=== PATIENT | male | born 1955 | race Caucasian/White ===

== ENCOUNTER → 2017-05-02 15:10 | Outpatient (CLI) | payer OTHER, SELFPAY ==
[2017-05-02 16:33] LABS: Absolute Lymphocyte Count 2.72 X10^3/ul (0.83-4.51); Basophil# 0.03 X10^3/uL; Basophil% 0.4 % (0-1); Eosinophil# 0.58 X10^3/uL; Hematocrit 31.9 % (40-54); Hemoglobin 9.5 g/dl (13.0-16.5); Lymphocyte # 2.72 X10^3/ul (4.0); Lymphocyte % 32.9 % (19-41); Mean Corp Hgb Conc 29.8 g/gl (32-36); Mean Corpuscular Hgb 26.1 pg (27.0-32.0); Mean Corpuscular Volume 87.6 fL (80-94); Mean Platelet Vol. 10.3 fl (6.2-12.0); Monocyte# 0.95 X10^3/uL; Monocyte% 11.5 % (0-10); Neutrophil # 3.97 X10^3/uL (2.7-7.7); Platelet Count 478 K/mm3 (150-450); RBC Distribution Width CV 15.5 % (11.6-14.6); RBC Distribution Width SD 48.3 fl (35.1-43.9); Red Blood Count 3.64 M/mm3 (4.6-6.2); White Blood Count 8.3 K/mm3 (4.4-11.0)
[2017-05-02 16:37] LABS: POSITIVE COUNT NO; POSITIVE DIFFERENTIAL NO; POSITIVE MORPHOLOGY NO
[2017-05-02 16:38] LABS: Anion Gap 7 (5-15); BUN 11 mg/dL (7-18); BUN/Creat Ratio 21.8 RATIO (10-20); CRP 8.81 mg/L (0.0-3.0); Calcium,Total 8.4 mg/dL (8.5-10.1); Chloride 99 mmol/L (98-107); EST Glomerular Filtration Rate 177 mL/min (>60); Est Glom Filt Rate - Afr Amer 214 mL/min (>60); Glucose 104 mg/dL (70-110); Potassium 4.4 mmol/L (3.5-5.1); Sodium Level 140 mmol/L (136-145)
== END ==
DX: A49.01 Methicillin susceptible Staphylococcus aureus infection, unspecified site (principal)
CPT/HCPCS: 80048; 85025; 86140

== ENCOUNTER → 2017-05-09 15:06 | Outpatient (CLI) | payer OTHER, SELFPAY ==
[2017-05-09 16:11] LABS: Absolute Lymphocyte Count 2.38 X10^3/ul (0.83-4.51); Absolute Neutrophil Count 4.2 X10^3/uL (2.0-7.7); Basophil# 0.05 X10^3/uL; Basophil% 0.6 % (0-1); Eosinophils% 7.4 % (0-5); Hematocrit 32.2 % (40-54); Hemoglobin 9.7 g/dl (13.0-16.5); Lymphocyte # 2.38 X10^3/ul (4.0); Lymphocyte % 29.3 % (19-41); Mean Corp Hgb Conc 30.1 g/gl (32-36); Mean Corpuscular Hgb 25.5 pg (27.0-32.0); Mean Corpuscular Volume 84.5 fL (80-94); Mean Platelet Vol. 10.2 fl (6.2-12.0); Monocyte# 0.91 X10^3/uL; Monocyte% 11.2 % (0-10); Neutrophil # 4.18 X10^3/uL (2.7-7.7); Neutrophil % 51.4 % (47-70); Platelet Count 544 K/mm3 (150-450); RBC Distribution Width CV 16.5 % (11.6-14.6); Red Blood Count 3.81 M/mm3 (4.6-6.2); White Blood Count 8.1 K/mm3 (4.4-11.0)
[2017-05-09 16:13] LABS: POSITIVE COUNT NO; POSITIVE DIFFERENTIAL NO; POSITIVE MORPHOLOGY NO
[2017-05-09 16:24] LABS: Anion Gap 7 (5-15); BUN 15 mg/dL (7-18); BUN/Creat Ratio 27.1 RATIO (10-20); Calcium,Total 8.4 mg/dL (8.5-10.1); Chloride 101 mmol/L (98-107); Creatinine, Serum 0.55 mg/dL (0.70-1.30); EST Glomerular Filtration Rate 159 mL/min (>60); Est Glom Filt Rate - Afr Amer 193 mL/min (>60); Glucose 112 mg/dL (74-106); Potassium 4.3 mmol/L (3.5-5.1); Sodium Level 139 mmol/L (136-145)
== END ==
DX: A49.01 Methicillin susceptible Staphylococcus aureus infection, unspecified site (principal)
CPT/HCPCS: 80048; 85025; 86140

== ENCOUNTER → 2017-05-11 17:01 | Outpatient (CLI) | payer OTHER, SELFPAY ==
[2017-05-11 17:33] LABS: CRP 5.08 mg/L (0.0-3.0)
== END ==
DX: A49.01 Methicillin susceptible Staphylococcus aureus infection, unspecified site (principal)
CPT/HCPCS: 86140

== ENCOUNTER 2017-08-30 13:05 | Outpatient (RCR) | payer OTHER, SELFPAY ==
[2017-08-22 12:39] LABS: Anion Gap 6 (5-15); BUN 10 mg/dL (7-18); BUN/Creat Ratio 17.1 RATIO (10-20); Chloride 102 mmol/L (98-107); Creatinine, Serum 0.58 mg/dL (0.70-1.30); EST Glomerular Filtration Rate 149 mL/min (>60); Est Glom Filt Rate - Afr Amer 181 mL/min (>60); Glucose 93 mg/dL (74-106); Potassium 4.5 mmol/L (3.5-5.1); Sodium Level 141 mmol/L (136-145)
[2017-08-22 12:53] LABS: Absolute Lymphocyte Count 1.96 X10^3/ul (0.83-4.51); Absolute Neutrophil Count 3.4 X10^3/uL (2.0-7.7); Basophil# 0.06 X10^3/uL; Basophil% 0.9 % (0-1); Eosinophil# 0.56 X10^3/uL; Eosinophils% 8.2 % (0-5); Hematocrit 34.5 % (40-54); Hemoglobin 11.2 g/dl (13.0-16.5); Lymphocyte # 1.96 X10^3/ul (4.0); Lymphocyte % 28.8 % (19-41); Mean Corp Hgb Conc 32.5 g/gl (32-36); Mean Corpuscular Hgb 26.5 pg (27.0-32.0); Mean Corpuscular Volume 81.6 fL (80-94); Mean Platelet Vol. 10.4 fl (6.2-12.0); Monocyte# 0.79 X10^3/uL; Monocyte% 11.6 % (0-10); Neutrophil # 3.42 X10^3/uL (2.7-7.7); Neutrophil % 50.2 % (47-70); Platelet Count 538 K/mm3 (150-450); RBC Distribution Width CV 22.4 % (11.6-14.6); RBC Distribution Width SD 64.6 fl (35.1-43.9); Red Blood Count 4.23 M/mm3 (4.6-6.2); White Blood Count 6.8 K/mm3 (4.4-11.0)
[2017-08-22 12:56] LABS: Differential Indicated SCAN CRITERIA MET; POSITIVE COUNT NO; POSITIVE DIFFERENTIAL NO; POSITIVE MORPHOLOGY YES
[2017-08-22 13:24] LABS: Anisocytosis 1+; Hypochromasia 1+; Platelet Estimate ADEQUATE (ADEQ)
[2017-08-30 15:14] LABS: Absolute Neutrophil Count 3.3 X10^3/uL (2.0-7.7); Basophil# 0.08 X10^3/uL; Basophil% 1.3 % (0-1); Eosinophil# 0.39 X10^3/uL; Eosinophils% 6.2 % (0-5); Hematocrit 35.8 % (40-54); Hemoglobin 11.3 g/dl (13.0-16.5); Lymphocyte % 28.4 % (19-41); Mean Corp Hgb Conc 31.6 g/gl (32-36); Mean Corpuscular Hgb 25.6 pg (27.0-32.0); Mean Corpuscular Volume 81.2 fL (80-94); Mean Platelet Vol. 9.9 fl (6.2-12.0); Monocyte% 12.6 % (0-10); Neutrophil # 3.26 X10^3/uL (2.7-7.7); Neutrophil % 51.3 % (47-70); Platelet Count 573 K/mm3 (150-450); RBC Distribution Width CV 22.1 % (11.6-14.6); RBC Distribution Width SD 64.6 fl (35.1-43.9); Red Blood Count 4.41 M/mm3 (4.6-6.2); White Blood Count 6.3 K/mm3 (4.4-11.0)
[2017-08-30 15:21] LABS: Differential Indicated SCAN CRITERIA MET; POSITIVE COUNT NO; POSITIVE DIFFERENTIAL NO; POSITIVE MORPHOLOGY YES
[2017-08-30 15:30] LABS: Anion Gap 10 (5-15); BUN 14 mg/dL (7-18); BUN/Creat Ratio 20.9 RATIO (10-20); CRP 4.47 mg/L (0.0-3.0); Calcium,Total 9.1 mg/dL (8.5-10.1); Chloride 101 mmol/L (98-107); Creatinine, Serum 0.67 mg/dL (0.70-1.30); EST Glomerular Filtration Rate 128 mL/min (>60); Est Glom Filt Rate - Afr Amer 154 mL/min (>60); Glucose 101 mg/dL (74-106); Potassium 4.4 mmol/L (3.5-5.1); Sodium Level 140 mmol/L (136-145)
[2017-08-30 16:03] LABS: Platelet Estimate MOD INC (ADEQ)
[2017-08-30 16:04] LABS: Anisocytosis 1+; Hypochromasia RARE; Microcytosis 1+; Ovalocyte RARE
== END 2017-09-01 23:59 ==
LOC: HHLAB 13:05
DX: Z79.2 Long term (current) use of antibiotics (principal); B95.62 Methicillin resistant Staphylococcus aureus infection as the cause of diseases classified elsewhere; Z51.81 Encounter for therapeutic drug level monitoring
CPT/HCPCS: 80048; 85025; 86140

== ENCOUNTER → 2017-09-10 11:56 | Outpatient (CLI) | payer OTHER, SELFPAY ==
--- NOTE | 2017-09-10 11:56 | DT_ITS ---
This patient was seen during an EMR downtime September 05, 2017 - September 12, 2017. This patient may have a combination of paper and electronic documentation or all paper documentation. All documentation is viewable within the e-chart portion of [employer] for each patient visit.
[2017-09-10 12:10] LABS: BUN 9 mg/dL (7-18); BUN/Creat Ratio 15.8 RATIO (10-20); Creatinine, Serum 0.57 mg/dL (0.70-1.30); EST Glomerular Filtration Rate 154 mL/min (>60); Est Glom Filt Rate - Afr Amer 187 mL/min (>60); Glucose 86 mg/dL (74-106)
[2017-09-10 12:13] LABS: Anion Gap 6 (5-15); CRP 5.23 mg/L (0.0-3.0); Calcium,Total 8.7 mg/dL (8.5-10.1); Chloride 102 mmol/L (98-107); Potassium 4.2 mmol/L (3.5-5.1); Sodium Level 140 mmol/L (136-145)
[2017-09-10 12:14] LABS: Hematocrit 37.6 % (40-54); Mean Corp Hgb Conc 31.9 g/gl (32-36); Mean Corpuscular Volume 84.5 fL (80-94); RBC Distribution Width CV 20.9 % (11.6-14.6); Red Blood Count 4.45 M/mm3 (4.6-6.2); White Blood Count 6.1 K/mm3 (4.4-11.0)
[2017-09-10 12:15] LABS: Absolute Lymphocyte Count 2.09 X10^3/ul (0.83-4.51); Absolute Neutrophil Count 2.8 X10^3/uL (2.0-7.7); Basophil% 1.3 % (0-1); Differential Indicated SCAN CRITERIA MET; Eosinophils% 7.9 % (0-5); Lymphocyte # 2.09 X10^3/ul (4.0); Lymphocyte % 34.3 % (19-41); Mean Platelet Vol. 10.6 fl (6.2-12.0); Monocyte# 0.63 X10^3/uL; Monocyte% 10.3 % (0-10); Neutrophil # 2.81 X10^3/uL (2.7-7.7); Neutrophil % 46.2 % (47-70); POSITIVE COUNT NO; POSITIVE DIFFERENTIAL NO; POSITIVE MORPHOLOGY YES; Platelet Count 525 K/mm3 (150-450); RBC Distribution Width SD 62.5 fl (35.1-43.9)
[2017-09-10 12:16] LABS: Basophil# 0.08 X10^3/uL; Eosinophil# 0.48 X10^3/uL
[2017-09-10 12:17] LABS: Differential Comment SCANNED
== END ==
LOC: LABSPEC 12:05 → HHLAB 12:10
DX: A49.01 Methicillin susceptible Staphylococcus aureus infection, unspecified site (principal)
CPT/HCPCS: 80048; 85025; 86140

== ENCOUNTER 2017-09-19 11:40 | Outpatient (RCR) | payer OTHER, SELFPAY ==
[2017-09-12 13:11] LABS: Absolute Lymphocyte Count 2.16 X10^3/ul (0.83-4.51); Absolute Neutrophil Count 3.5 X10^3/uL (2.0-7.7); Basophil# 0.05 X10^3/uL; Basophil% 0.7 % (0-1); Eosinophil# 0.53 X10^3/uL; Eosinophils% 7.7 % (0-5); Hemoglobin 12.5 g/dl (13.0-16.5); Lymphocyte # 2.16 X10^3/ul (4.0); Lymphocyte % 31.3 % (19-41); Mean Corp Hgb Conc 31.3 g/gl (32-36); Mean Corpuscular Hgb 26.3 pg (27.0-32.0); Mean Corpuscular Volume 84.2 fL (80-94); Mean Platelet Vol. 9.8 fl (6.2-12.0); Monocyte# 0.67 X10^3/uL; Monocyte% 9.7 % (0-10); Neutrophil % 50.6 % (47-70); Platelet Count 356 K/mm3 (150-450); RBC Distribution Width CV 18.8 % (11.6-14.6); RBC Distribution Width SD 58.1 fl (35.1-43.9); Red Blood Count 4.75 M/mm3 (4.6-6.2); White Blood Count 6.9 K/mm3 (4.4-11.0)
[2017-09-12 13:17] LABS: POSITIVE COUNT NO; POSITIVE DIFFERENTIAL NO; POSITIVE MORPHOLOGY NO
[2017-09-12 13:25] LABS: Anion Gap 5 (5-15); BUN 10 mg/dL (7-18); BUN/Creat Ratio 14.8 RATIO (10-20); CRP < 2.90 mg/L (0.0-3.0); Calcium,Total 9.1 mg/dL (8.5-10.1); Chloride 100 mmol/L (98-107); Creatinine, Serum 0.68 mg/dL (0.70-1.30); EST Glomerular Filtration Rate 126 mL/min (>60); Est Glom Filt Rate - Afr Amer 152 mL/min (>60); Glucose 109 mg/dL (74-106); Potassium 4.2 mmol/L (3.5-5.1); Sodium Level 140 mmol/L (136-145)
[2017-09-19 12:51] LABS: Absolute Lymphocyte Count 2.23 X10^3/ul (0.83-4.51); Absolute Neutrophil Count 2.9 X10^3/uL (2.0-7.7); Basophil# 0.07 X10^3/uL; Basophil% 1.1 % (0-1); Eosinophil# 0.56 X10^3/uL; Eosinophils% 8.7 % (0-5); Hematocrit 37.3 % (40-54); Lymphocyte # 2.23 X10^3/ul (4.0); Lymphocyte % 34.5 % (19-41); Mean Corp Hgb Conc 32.2 g/gl (32-36); Mean Corpuscular Hgb 27.5 pg (27.0-32.0); Mean Corpuscular Volume 85.6 fL (80-94); Mean Platelet Vol. 10.5 fl (6.2-12.0); Monocyte# 0.72 X10^3/uL; Monocyte% 11.1 % (0-10); Neutrophil # 2.88 X10^3/uL (2.7-7.7); Neutrophil % 44.4 % (47-70); Platelet Count 277 K/mm3 (150-450); RBC Distribution Width CV 18.1 % (11.6-14.6); RBC Distribution Width SD 56.2 fl (35.1-43.9); Red Blood Count 4.36 M/mm3 (4.6-6.2); White Blood Count 6.5 K/mm3 (4.4-11.0)
[2017-09-19 12:57] LABS: POSITIVE COUNT NO; POSITIVE DIFFERENTIAL NO; POSITIVE MORPHOLOGY NO
[2017-09-19 13:06] LABS: Anion Gap 7 (5-15); BUN 19 mg/dL (7-18); BUN/Creat Ratio 29.4 RATIO (10-20); CRP 5.33 mg/L (0.0-3.0); Chloride 103 mmol/L (98-107); Creatinine, Serum 0.65 mg/dL (0.70-1.30); EST Glomerular Filtration Rate 133 mL/min (>60); Est Glom Filt Rate - Afr Amer 161 mL/min (>60); Glucose 87 mg/dL (74-106); Sodium Level 140 mmol/L (136-145)
== END 2017-10-01 23:59 ==
LOC: HHLAB 11:40
DX: A49.01 Methicillin susceptible Staphylococcus aureus infection, unspecified site (principal)
CPT/HCPCS: 80048; 85025; 86140

== ENCOUNTER 2018-03-06 11:00 | Outpatient (RCR) | payer OTHER, SELFPAY ==
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
--- NOTE | 2018-05-02 11:32 | HP.OT.NRP ---
HP - Discharge Summary - Patient Information CHIVO CANTRELL was seen in my office for initial evaluation on 02/27/18. The following Plan of Care was established for this patient: Initial Frequency: 3x /Week Initial Duration: until 04/03/18 Plan: cont POC - Anticipated Interventions Anticipated Interventions: A/AAROM/PROM, Strengthening, Edema Control, Scar Care, Triggerpoint Release, Modalities, Joint Protection/Energy Conservation, Ergonomic Education, ADL Training, Home Program This patient was last seen 2017 in our office . Pertinent comments regarding their Occupational therapy will appear below: Pt was seen for a total of 3 visits- he was progressing. He has 4 no show/cancellation and has not scheduled any new apts. Due to timelapse in services pt is D/C at this time. At this point I will be discontinuing this patient from occupational therapy. I would be happy to see this patient again in the future if found appropriate by the physician. Thank you! Lani Koch, OTR/L, CHT
== END 2018-03-06 19:00 | disposition home or self-care (01) ==
LOC: OT 11:00
DX: S52.251 Displaced comminuted fracture of shaft of ulna, right arm (principal)
CPT/HCPCS: 97110; 97140; 97166; 97530

== ENCOUNTER 2018-09-18 10:40 | Outpatient (RCR) | payer OTHER, SELFPAY ==
[2018-09-18 13:19] LABS: Absolute Lymphocyte Count 2.04 X10^3/ul (0.83-4.51); Basophil# 0.05 X10^3/uL; Basophil% 0.7 % (0-1); Eosinophils% 5.5 % (0-5); Hematocrit 41.1 % (40-54); Hemoglobin 13.4 g/dl (13.0-16.5); Lymphocyte # 2.04 X10^3/ul (4.0); Lymphocyte % 28.3 % (19-41); Mean Corp Hgb Conc 32.6 g/gl (32-36); Mean Corpuscular Hgb 29.2 pg (27.0-32.0); Mean Corpuscular Volume 89.5 fL (80-94); Mean Platelet Vol. 10.3 fl (6.2-12.0); Monocyte# 0.68 X10^3/uL; Monocyte% 9.4 % (0-10); Neutrophil # 4.04 X10^3/uL (2.7-7.7); Platelet Count 426 K/mm3 (150-450); RBC Distribution Width CV 15.2 % (11.6-14.6); RBC Distribution Width SD 49.4 fl (35.1-43.9); Red Blood Count 4.59 M/mm3 (4.6-6.2); White Blood Count 7.2 K/mm3 (4.4-11.0)
[2018-09-18 13:20] LABS: POSITIVE COUNT NO; POSITIVE DIFFERENTIAL NO; POSITIVE MORPHOLOGY NO
[2018-09-18 13:25] LABS: Anion Gap 6 (5-15); BUN 6 mg/dL (7-18); BUN/Creat Ratio 9.6 RATIO (10-20); Chloride 101 mmol/L (98-107); Creatinine, Serum 0.63 mg/dL (0.70-1.30); EST Glomerular Filtration Rate 137 mL/min (>60); Est Glom Filt Rate - Afr Amer 166 mL/min (>60); Glucose 92 mg/dL (74-106); Potassium 4.1 mmol/L (3.5-5.1); Sodium Level 140 mmol/L (136-145)
[2018-09-18 13:26] LABS: Vancomycin, Trough Level 13.3 ug/mL (5.0-15.0)
[2018-09-25 10:37] LABS: Absolute Lymphocyte Count 1.98 X10^3/ul (0.83-4.51); Absolute Neutrophil Count 4.6 X10^3/uL (2.0-7.7); Basophil# 0.04 X10^3/uL; Basophil% 0.5 % (0-1); Eosinophil# 0.45 X10^3/uL; Eosinophils% 5.7 % (0-5); Hematocrit 40.7 % (40-54); Hemoglobin 13.4 g/dl (13.0-16.5); Lymphocyte # 1.98 X10^3/ul (4.0); Lymphocyte % 25.1 % (19-41); Mean Corp Hgb Conc 32.9 g/gl (32-36); Mean Corpuscular Hgb 29.3 pg (27.0-32.0); Mean Corpuscular Volume 88.9 fL (80-94); Monocyte# 0.77 X10^3/uL; Monocyte% 9.8 % (0-10); Neutrophil # 4.63 X10^3/uL (2.7-7.7); Neutrophil % 58.8 % (47-70); Platelet Count 385 K/mm3 (150-450); RBC Distribution Width CV 15.5 % (11.6-14.6); RBC Distribution Width SD 49.9 fl (35.1-43.9); Red Blood Count 4.58 M/mm3 (4.6-6.2); White Blood Count 7.9 K/mm3 (4.4-11.0)
[2018-09-25 10:39] LABS: POSITIVE COUNT NO; POSITIVE DIFFERENTIAL NO; POSITIVE MORPHOLOGY NO
[2018-09-25 10:53] LABS: Anion Gap 8 (5-15); BUN 15 mg/dL (7-18); BUN/Creat Ratio 23.2 RATIO (10-20); CRP 8.67 mg/L (0.0-3.0); Calcium,Total 8.9 mg/dL (8.5-10.1); Chloride 101 mmol/L (98-107); Creatinine, Serum 0.65 mg/dL (0.70-1.30); EST Glomerular Filtration Rate 133 mL/min (>60); Est Glom Filt Rate - Afr Amer 160 mL/min (>60); Glucose 102 mg/dL (74-106); Sodium Level 140 mmol/L (136-145)
[2018-09-25 10:54] LABS: Vancomycin, Random Level 14.1 ug/mL (0.0-15.0)
== END 2018-10-01 23:59 ==
LOC: HHLAB 10:40
DX: T81.43XA Infection following a procedure, organ and space surgical site, initial encounter (principal); T84.192A Other mechanical complication of internal fixation device of bone of right forearm, initial encounter
CPT/HCPCS: 80048; 80202; 85025; 86140

== ENCOUNTER → 2018-10-03 08:06 | Outpatient (CLI) | payer OTHER, SELFPAY ==
[2018-10-03] MEDS: Alteplase 2 MG/2 ML Vial IV (08:20)
[2018-10-03 08:27] VITALS: BP 148/77; PULSE 85; RESP 18; TEMP 36.4; O2SAT 90; BMI 33.0
[2018-10-03 09:55] LABS: Absolute Lymphocyte Count 1.48 X10^3/ul (0.83-4.51); Absolute Neutrophil Count 4.4 X10^3/uL (2.0-7.7); Basophil# 0.04 X10^3/uL; Basophil% 0.6 % (0-1); Eosinophil# 0.47 X10^3/uL; Eosinophils% 6.6 % (0-5); Hematocrit 40.6 % (40-54); Hemoglobin 13.3 g/dl (13.0-16.5); Lymphocyte # 1.48 X10^3/ul (4.0); Lymphocyte % 20.8 % (19-41); Mean Corp Hgb Conc 32.8 g/gl (32-36); Mean Corpuscular Hgb 28.7 pg (27.0-32.0); Mean Corpuscular Volume 87.5 fL (80-94); Monocyte# 0.78 X10^3/uL; Monocyte% 10.9 % (0-10); Neutrophil # 4.35 X10^3/uL (2.7-7.7); Platelet Count 372 K/mm3 (150-450); RBC Distribution Width CV 15.2 % (11.6-14.6); RBC Distribution Width SD 48.3 fl (35.1-43.9); Red Blood Count 4.64 M/mm3 (4.6-6.2); White Blood Count 7.1 K/mm3 (4.4-11.0)
[2018-10-03 09:57] LABS: POSITIVE COUNT NO; POSITIVE DIFFERENTIAL NO; POSITIVE MORPHOLOGY NO
[2018-10-03 10:04] LABS: Anion Gap 1 (5-15); BUN 10 mg/dL (7-18); BUN/Creat Ratio 16.8 RATIO (10-20); Chloride 101 mmol/L (98-107); Creatinine, Serum 0.59 mg/dL (0.70-1.30); EST Glomerular Filtration Rate 146 mL/min (>60); Est Glom Filt Rate - Afr Amer 177 mL/min (>60); Estimated Creatinine Clearance 132.32 ml/min; Glucose 98 mg/dL (74-106); Sodium Level 137 mmol/L (136-145)
[2018-10-03 13:01] LABS: CRP 5.02 mg/L (0.0-3.0)
== END ==
DX: T84.7XXD Infection and inflammatory reaction due to other internal orthopedic prosthetic devices, implants and grafts, subsequent encounter (principal)
CPT/HCPCS: 36592; 36593; 80048; 85025; 86140; J2997; A4216

== ENCOUNTER 2018-10-13 11:16 | Outpatient (RCR) | payer OTHER, SELFPAY ==
[2018-10-02 11:21] LABS: Vancomycin, Trough Level 12.6 ug/mL (5.0-15.0)
[2018-10-09 10:11] LABS: Anion Gap 5 (5-15); BUN 15 mg/dL (7-18); BUN/Creat Ratio 12.3 RATIO (10-20); Calcium,Total 9.1 mg/dL (8.5-10.1); Chloride 99 mmol/L (98-107); Creatinine, Serum 1.22 mg/dL (0.70-1.30); EST Glomerular Filtration Rate 64 mL/min (>60); Est Glom Filt Rate - Afr Amer 77 mL/min (>60); Glucose 94 mg/dL (74-106); Potassium 3.8 mmol/L (3.5-5.1); Sodium Level 138 mmol/L (136-145)
[2018-10-09 10:12] LABS: Absolute Lymphocyte Count 1.59 X10^3/ul (0.83-4.51); Absolute Neutrophil Count 11.7 X10^3/uL (2.0-7.7); Basophil# 0.05 X10^3/uL; Basophil% 0.3 % (0-1); Differential Indicated SCAN CRITERIA MET; Eosinophils% 3.1 % (0-5); Hematocrit 36.7 % (40-54); Hemoglobin 12.2 g/dl (13.0-16.5); Lymphocyte # 1.59 X10^3/ul (4.0); Lymphocyte % 9.8 % (19-41); Mean Corp Hgb Conc 33.2 g/gl (32-36); Mean Corpuscular Hgb 29.2 pg (27.0-32.0); Mean Corpuscular Volume 87.8 fL (80-94); Monocyte# 2.44 X10^3/uL; Neutrophil # 11.67 X10^3/uL (2.7-7.7); Neutrophil % 71.6 % (47-70); POSITIVE COUNT NO; POSITIVE DIFFERENTIAL YES; POSITIVE MORPHOLOGY NO; Platelet Count 309 K/mm3 (150-450); RBC Distribution Width CV 14.8 % (11.6-14.6); RBC Distribution Width SD 47.6 fl (35.1-43.9); Red Blood Count 4.18 M/mm3 (4.6-6.2); Vancomycin, Trough Level 25.2 ug/mL (5.0-15.0); White Blood Count 16.3 K/mm3 (4.4-11.0)
[2018-10-10 10:24] LABS: Pathologist Review Reviewed
[2018-10-13 11:24] LABS: Absolute Lymphocyte Count 1.45 X10^3/ul (0.83-4.51); Absolute Neutrophil Count 7.6 X10^3/uL (2.0-7.7); Basophil# 0.08 X10^3/uL; Basophil% 0.7 % (0-1); Eosinophil# 0.51 X10^3/uL; Eosinophils% 4.6 % (0-5); Hematocrit 35.5 % (40-54); Hemoglobin 11.4 g/dl (13.0-16.5); Lymphocyte # 1.45 X10^3/ul (4.0); Lymphocyte % 13.2 % (19-41); Mean Corp Hgb Conc 32.1 g/gl (32-36); Mean Corpuscular Hgb 28.3 pg (27.0-32.0); Mean Corpuscular Volume 88.1 fL (80-94); Mean Platelet Vol. 9.9 fl (6.2-12.0); Monocyte# 1.38 X10^3/uL; Monocyte% 12.5 % (0-10); Neutrophil # 7.57 X10^3/uL (2.7-7.7); Neutrophil % 68.7 % (47-70); Platelet Count 378 K/mm3 (150-450); RBC Distribution Width CV 14.5 % (11.6-14.6); RBC Distribution Width SD 46.1 fl (35.1-43.9); Red Blood Count 4.03 M/mm3 (4.6-6.2)
[2018-10-13 11:25] LABS: POSITIVE COUNT NO; POSITIVE DIFFERENTIAL NO; POSITIVE MORPHOLOGY NO
[2018-10-13 11:36] LABS: Anion Gap 5 (5-15); BUN 13 mg/dL (7-18); BUN/Creat Ratio 12.5 RATIO (10-20); Calcium,Total 9.1 mg/dL (8.5-10.1); Chloride 98 mmol/L (98-107); Creatinine, Serum 1.04 mg/dL (0.70-1.30); EST Glomerular Filtration Rate 77 mL/min (>60); Est Glom Filt Rate - Afr Amer 93 mL/min (>60); Glucose 94 mg/dL (74-106); Potassium 3.2 mmol/L (3.5-5.1); Sodium Level 138 mmol/L (136-145)
== END 2018-11-01 23:59 ==
LOC: HHLAB 11:16
DX: T81.43XA Infection following a procedure, organ and space surgical site, initial encounter (principal); T84.192A Other mechanical complication of internal fixation device of bone of right forearm, initial encounter
CPT/HCPCS: 80048; 80202; 85025; 86140

== ENCOUNTER 2018-10-16 07:17 | Inpatient (IN) | payer SELFPAY ==
[2018-10-03 08:27] VITALS: BMI 33.0
[2018-10-16] VITALS (19 sets, daily range): BP systolic 144–213; BP diastolic 87–124; PULSE 70–139; RESP 18–24; TEMP 36.1–37.2; O2SAT 90–98; BMI 33.0
--- NOTE | 2018-10-16 07:30 | RAD_ITS ---
STUDY: X-RAY CHEST REASON FOR EXAM: Male, 63 years old. Shortness of breath/dyspnea. TECHNIQUE: Single AP portable view of the chest. COMPARISON: Comparison is made with prior study dated June 29, 2013. FINDINGS: EKG electrodes are seen. A left-sided PICC line catheter is in situ with tip in the midportion of the superior vena cava. Surgical clips are seen in the left axillary region. Minimal increased linear markings at the right lung base as well as in the right midlung suggestive of scarring. There is no demonstrated pleural abnormality. Normal size heart. Normal mediastinum and umberto. Normal visualized pulmonary arteries. Normal visualized aortic arch and descending thoracic aorta. There are degenerative changes of the visualized thoracic spine. Healed right-sided rib fractures. There is no demonstrated abnormality of the visualized soft tissue structures of the upper abdomen. RAD/Chest 1 View (Portable) IMPRESSION: Mild scarring at the right lung base. Multiple healed right-sided rib fractures. Electronically Signed: Farhat Seals, at 8:10 EDT , Service support ,
--- NOTE | 2018-10-16 07:31 | EKG12_ITS ---
Test Reason : SOB Blood Pressure : / mmHG Vent. Rate : 083 BPM Atrial Rate : 083 BPM P-R Int : 144 ms QRS Dur : 086 ms QT Int : 366 ms P-R-T Axes : 075 030 067 degrees QTc Int : 430 ms Normal sinus rhythm LOW VOLTAGE QRS (LIMB LEADS) POOR R-WAVE PROGRESSION Confirmed by STEPHENIE FERRO, ROSLYN ([id number]), loan expeditor LAMIN ROSE ([id number]) on 10/18/2018 11:31:08 AM Referred By: CLARIBEL MORA Confirmed By:ROSLYN CASIANO MD
--- NOTE | 2018-10-16 07:32 | ED.VIS.GEN ---
History of Present Illness Chief Complaint: Shortness of Breath Informant: Patient Onset: Yesterday Timing: Continuous Current Severity: Moderate Maximum Severity: Moderate Narrative: Patient presents with shortness of breath that started yesterday. He does have orthopnea, he has no fever chills, he has no known swelling or edema that started recently. He does not have a cough. He has a left arm PICC line for a right wrist chronic infection being seen at the [facility]. He has no history of COPD or CHF, is obviously hypertensive as I walked into the room but he denies any history of high blood pressure or taking any medications for high blood pressure. He denies any cough congestion. He has no chest pain or pleuritic component. No back pain or tearing sensation. There is no abdominal pain nausea vomiting or diarrhea. He does not feel lightheaded when he stands up Past Medical History - Allergies and Home Meds Allergies/Adverse Reactions: Allergies No Known Allergies Allergy (Verified 10/16/18 07:18) Primary Care Physician: NOT,DEFINED [NON-STAFF] - Prior records reviewed: Yes Past Medical History: - - Chronic right wrist infection, PICC line, IV antibiotics. He recently finished a azithromycin last night. Smoking Status: Unknown if ever smoked Drugs: None Review of Systems All systems negative except as indicated General: Denies: Chills, Fever, Sweats Eyes: Reports: Visual changes - bilaterally. Denies: Diplopia ENT: Denies: Rhinorrhea, Sore throat Cardiovascular: Denies: Chest pain, Palpitations Respiratory: Reports: Dyspnea, Dyspnea on exertion, Orthopnea. Denies: Cough, Sputum Gastrointestinal: Denies: Abdominal pain, Nausea, Vomiting, Diarrhea, Melena, Hematochezia Genitourinary: Denies: Dysuria, Hematuria, Frequency Musculoskeletal: Reports: - - PICC line, chronic right wrist infection. Denies: Back pain Skin: Denies: Rash, Wounds Neurological: Denies: Headache, Weakness, Numbness Endocrine: Denies: Polyuria Hematologic: Denies: Easy bruising Physical Exam Vital Signs/Narrative: Vital Signs Temp Pulse Resp BP Pulse Ox 10/16/18 07:18 97 F L 83 22 H 213/124 H 91 Inital Vital Signs reviewed: Yes General: Well nourished, - - He appears in some distress Eyes: Negative for: Pale conjunctiva ENT: Moist mucous membranes. Negative for: Nasal congestion Neck: Supple Cardiovascular: Regular rate, Regular rhythm, No murmurs Respiratory: Wheezing, - - Patient has bilateral wheezing and coarse breath sounds. He is speaking in full sentences with normal expiration. Abdomen: Soft, Nontender Rectal: Deferred Back: Nontender, Normal Inspection Extremities: - - There is trace bilateral symmetric lower extremity edema. He has a late upper extremity PICC line which is intact. His right upper extremity has a splint, external exam does not show any signs of cellulitis or infection. There is no edema. Skin: Normal color. Negative for: Pallor Neurological: Alert, Normal Gait. Negative for: Weakness Diagnostic/Tx/Re-eval Chest X-Ray - ED: 1 View, Normal, Heart, Lungs - Rhythm Strip Rhythm Strip: Sinus Rhythm Rate: 83 - Normal MD normal QTC intervals. Otherwise unremarkable EKG Ectopy: None - EKG Initial EKG Interpretation: Sinus Rhythm, No Acute Injury Pattern, - - Normal MD interval normal QTC. No ST changes. Interpreted by emergency doctor - Medical Decision Making Patient is found to be hyponatremic, however clinically I cannot tell if he has hypovolemic or normovolemic, or hypervolemic. I did sent osmolality studies as well as urine sodium. Regardless he is slightly hypoxic in the emergency department had wheezing, he is a smoker he may have undiagnosed COPD. He received Solu-Medrol and nebulizers he did improve however he will need to be admitted for his COPD. The hyponatremic work-up can be done inpatient. I did a CT angiogram and there is no evidence of pulmonary embolism. Admit stable condition ED Disposition - Plan for ED Patient: Diagnosis: Hypoxia, Hyponatremia Referrals: NOT,DEFINED [NON-STAFF] -
[2018-10-16] MEDS: Ipratropium/Albuterol Sulfate 3 ML AMPUL.NEB INHALATION ×3 (07:47→23:38)
[2018-10-16 08:00] LABS: Absolute Lymphocyte Count 1.39 X10^3/ul (0.83-4.51); Absolute Neutrophil Count 9.6 X10^3/uL (2.0-7.7); Basophil# 0.04 X10^3/uL; Basophil% 0.3 % (0-1); Eosinophil# 0.27 X10^3/uL; Eosinophils% 2.1 % (0-5); Hemoglobin 12.2 g/dl (13.0-16.5); Lymphocyte # 1.39 X10^3/ul (4.0); Mean Corp Hgb Conc 34.9 g/gl (32-36); Mean Corpuscular Hgb 29.3 pg (27.0-32.0); Mean Corpuscular Volume 83.9 fL (80-94); Mean Platelet Vol. 9.4 fl (6.2-12.0); Monocyte# 1.25 X10^3/uL; Monocyte% 9.9 % (0-10); Neutrophil # 9.61 X10^3/uL (2.7-7.7); Neutrophil % 76.4 % (47-70); POSITIVE COUNT NO; POSITIVE DIFFERENTIAL NO; POSITIVE MORPHOLOGY NO; Platelet Count 427 K/mm3 (150-450); RBC Distribution Width SD 43.1 fl (35.1-43.9); Red Blood Count 4.17 M/mm3 (4.6-6.2); White Blood Count 12.6 K/mm3 (4.4-11.0)
[2018-10-16 08:17] LABS: ALB/GLOB Ratio 0.8 RATIO (0.9-2.4); AST(SGOT) 26 U/L (15-37); Alanine Aminotransfer ALT/SGPT 41 U/L (16-61); Albumin, Serum 3.4 g/dL (3.2-5.0); Alkaline Phosphatase 122 U/L (45-117); Anion Gap 5 (5-15); BUN 9 mg/dL (7-18); BUN/Creat Ratio 10.8 RATIO (10-20); Calcium,Total 8.6 mg/dL (8.5-10.1); Chloride 83 mmol/L (98-107); Creatinine, Serum 0.83 mg/dL (0.70-1.30); EST Glomerular Filtration Rate 99 mL/min (>60); Est Glom Filt Rate - Afr Amer 120 mL/min (>60); Estimated Creatinine Clearance 94.06 ml/min; Globulin 4.1 g/dL (2.2-4.2); Glucose 121 mg/dL (74-106); Potassium 2.9 mmol/L (3.5-5.1); Protein, Total 7.5 g/dL (6.4-8.2); Sodium Level 124 mmol/L (136-145)
--- NOTE | 2018-10-16 08:19 | CT_ITS ---
STUDY: CTA CHEST REASON FOR EXAM: Male, 63 years old. Shortness of breath. RADIATION DOSAGE (If Supplied By Facility): CTDIvol = ( 13.56 ) mGy, DLP = ( 490.67 ) mGycm TECHNIQUE: The examination was performed with the intravenous administration of 100 IV Isovue 370. Post-processing of the angiographic images was performed, with multiplanar reformation and 3D reconstruction. Individualized dose optimization techniques were used for this CT. COMPARISON: None. FINDINGS: Right axillary lymph nodes. The largest measures 1.9 cm. Normal enhancement of the main pulmonary artery and right and left pulmonary arteries. Normal enhancement of the bilateral peripheral pulmonary arteries. There is no demonstrated pulmonary embolism. Normal thoracic aorta and visualized great vessels. There is no demonstrated aortic dissection. Normal heart and pericardium. There are visualized mediastinal lymph nodes, which are within normal size limits, and with normal morphology. Normal hilar regions. Normal visualized trachea and bronchi. The lungs are well expanded. Mild degree of emphysematous changes. Minimal increased markings in the anterior right apex suggestive of scarring. Minimal increased markings in the peripheral lateral aspect of the right lower lobe most likely representing scarring. Follow-up examination in 6 months is recommended for further evaluation. Normal pleura. Normal chest wall structures. Multiple healed right rib fractures. Multilevel disc space narrowing and spondylosis of the thoracic vertebrae. Normal visualized upper abdomen. CT/CTA Chest W/WO Contrast IMPRESSION: No evidence of pulmonary embolism. Findings suggestive of scarring at the right lung base abutting the pleura. A 6 month follow-up CT scan is recommended. Electronically Signed: Farhat Seals, at 9:14 EDT , Service support ,
[2018-10-16 08:26] LABS: BNP,B-Type NATRIURETIC PEPTIDE 138.7 pg/mL (0-100)
[2018-10-16] MEDS: hydrALAZINE 20 MG/ML Vial 5 MG IV (10:03)
[2018-10-16] MEDS: MethylPREDNISolone 125 MG/2 ML Vial IV (10:03)
[2018-10-16 10:21] LABS: Osmolality, Serum 276 mOsm/KG (280-301)
--- NOTE | 2018-10-16 10:24 | NURSING ---
DR ISABELA SEQUEIRA
--- NOTE | 2018-10-16 10:27 | NURSING ---
121 ISAEBLA COPD EXAC
[2018-10-16 10:47] LABS: Urine Sodium 86 mmol/L (Not Establ.)
[2018-10-16 10:56] LABS: Osmolality, Urine 362 mOsm/KG
--- NOTE | 2018-10-16 16:34 | ECHOD_ITS ---
Reason For Study: DYSPNEA/SOB Procedure This was a 2D Doppler, Color Flow transthoracic echocardiogram. The study was technically difficult. Exam performed portable in patient room. Left Ventricle Normal LV size. Left ventricular systolic function is normal. The estimated ejection fraction is 65 %. Diastolic function is indeterminate. No regional wall motion abnormalities noted. Right Ventricle Normal RV size. Normal systolic function. Atria The left atrium is mildly enlarged. Normal right atrium. No doppler evidence for ASD. Mitral Valve There is no mitral annular calcification. Normal mitral valve. Trivial mitral valve insufficiency. Tricuspid Valve Normal tricuspid valve. Trivial tricuspid valve insufficiency. Unable to estimate RV systolic pressure/pulmonary artery pressure due to technically difficult study. Aortic Valve Trisinus/trileaflet aortic valve. Normal aortic valve. Pulmonic Valve The pulmonic valve is not well visualized. Great Vessels Normal sized aortic root. Pericardium/Pleural No pericardial effusion. MMode/2D Measurements & Calculations LVIDd: 4.8 cm IVSd: 1.1 cm Ao root diam: 3.3 cm LVIDs: 3.4 cm LVPWd: 1.1 cm RVDd: 3.7 cm FS: 29.4 % LAV(MOD-bp): 65.3 ml LA A4 area: 18.9 cm2 LA dimension(2D): 4.2 cm LAV(MOD-bp) Indexed: 29.5 ml/m2 LAV(MOD-sp2): 62.5 ml LAV(MOD-sp4): 58.9 ml RA A4 area: 18.5 cm2 Doppler Measurements & Calculations MV E max mehdi: 88.8 cm/sec Lat Peak E' Mehdi: 8.9 cm/sec Med Peak E' Mehdi: 7.1 cm/sec MV A max mehdi: 110.7 cm/sec E/E' lat: 9.9 E/E' med: 12.6 MV E/A: 0.80 Ao V2 max: 133.8 cm/sec LV V1 max: 114.4 cm/sec PA V2 max: 110.8 cm/sec Ao max P.2 mmHg LV V1 max P.2 mmHg Interpretation Summary The study was technically difficult. Left ventricular systolic function is normal. The estimated ejection fraction is 65 %. The left atrium is mildly enlarged. Trivial mitral valve insufficiency. Trivial tricuspid valve insufficiency. Unable to estimate RV systolic pressure/pulmonary artery pressure due to technically difficult study. Diastolic function is indeterminate. Ordering Physician: Chato Ramirez Referring Physician: NO PCP Performed By: Chetna Bonilla, JOLLY, RVT
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
[2018-10-16] MEDS: Lisinopril 10 MG Tablet PO (17:34)
[2018-10-16 20:56] LABS: Bacteria 0 SEEN /hpf (None Seen); Mucous, Urine 0 SEEN /hpf (<or=2+); Red Blood Cells-Urine 0 SEEN /hpf (0-5); Squamous Epithelial Cells - UA 0 SEEN /hpf (0-5)
[2018-10-16 20:58] LABS: Color, Urine Yellow (Yellow); Glucose, Dipstick Normal (Normal); Ketone-Dipstick Negative (Negative); Leukocyte Esterase-Dipstick Negative /ul (Negative); Nitrite-Dipstick Negative (Negative); Occult Blood-Urine 10 /ul (Negative); Protein-Dipstick 15 mg/dl (Negative); Specific Gravity, Urine 1.005 (1.002-1.030); Urine Bilirubin Dipstick Negative (Negative); Urine Clarity Clear (Clear); Urine Urobilinogen Normal (Normal)
[2018-10-16 21:15] LABS: White Blood Cells 0-5 SEEN /hpf (0-5)
[2018-10-17] VITALS (12 sets, daily range): BP systolic 111–151; BP diastolic 67–84; PULSE 83–106; RESP 18–20; TEMP 36.6–36.8; O2SAT 88–95
[2018-10-17] MEDS: 0.9% NaCl PICC Flush IV (05:42)
[2018-10-17 07:01] LABS: Absolute Lymphocyte Count 3.23 X10^3/ul (0.83-4.51); Absolute Neutrophil Count 12.9 X10^3/uL (2.0-7.7); Basophil# 0.02 X10^3/uL; Basophil% 0.1 % (0-1); Eosinophil# 0.04 X10^3/uL; Eosinophils% 0.2 % (0-5); Hematocrit 38.4 % (40-54); Hemoglobin 13.3 g/dl (13.0-16.5); Lymphocyte # 3.23 X10^3/ul (4.0); Lymphocyte % 19.3 % (19-41); Mean Corp Hgb Conc 34.6 g/gl (32-36); Mean Corpuscular Hgb 29.2 pg (27.0-32.0); Mean Corpuscular Volume 84.2 fL (80-94); Mean Platelet Vol. 9.3 fl (6.2-12.0); Monocyte# 0.51 X10^3/uL; Neutrophil # 12.87 X10^3/uL (2.7-7.7); Platelet Count 456 K/mm3 (150-450); RBC Distribution Width CV 14.2 % (11.6-14.6); RBC Distribution Width SD 43.6 fl (35.1-43.9); Red Blood Count 4.56 M/mm3 (4.6-6.2); White Blood Count 16.7 K/mm3 (4.4-11.0)
[2018-10-17 07:08] LABS: Differential Indicated SCAN CRITERIA MET; POSITIVE COUNT NO; POSITIVE DIFFERENTIAL NO; POSITIVE MORPHOLOGY YES
[2018-10-17] MEDS: Ipratropium/Albuterol Sulfate 3 ML AMPUL.NEB INHALATION ×4 (07:09→19:17)
[2018-10-17 07:23] LABS: Anion Gap 6 (5-15); BUN 12 mg/dL (7-18); BUN/Creat Ratio 14.3 RATIO (10-20); Calcium,Total 9.3 mg/dL (8.5-10.1); Chloride 89 mmol/L (98-107); Cholesterol 175 mg/dL (200); Creatinine, Serum 0.84 mg/dL (0.70-1.30); EST Glomerular Filtration Rate 98 mL/min (>60); Est Glom Filt Rate - Afr Amer 118 mL/min (>60); Estimated Creatinine Clearance 92.94 ml/min; Glucose 105 mg/dL (74-106); High Density Lipoprotein 45 mg/dL; Magnesium 1.9 mg/dL (1.6-2.6); Potassium 3.6 mmol/L (3.5-5.1); Sodium Level 131 mmol/L (136-145); Triglycerides 98 mg/dL; Very Low Density Lipoprotein 20 mg/dL (5-40)
[2018-10-17 07:50] LABS: Hemoglobin A1c 5.8 % (4.2-6.3)
[2018-10-17] MEDS: Lisinopril 10 MG Tablet PO (08:02)
[2018-10-17] MEDS: predniSONE 20 MG Tablet 40 MG PO (08:02)
[2018-10-17] MEDS: Enoxaparin 40 MG/0.4 ML Syringe SC (08:02)
--- NOTE | 2018-10-17 15:18 | CASEMGMT ---
RN CM Assessment Introduced role of RN CM to patient.? Patient is alert, oriented and able?to participate in RN CM Assessment. However, Patient just assisted back into bed by staff and laying down and resulting in him falling asleep during conversation and needing a few prompts to finish assessment.?Care providers, pharmacy, and demographics verified. Presentation: SOB, Orthopnia, Has Lt arm PICC line for Rt wrist chronic infection, seen at [facility]. Admit Dx: COPD Exacerbation Re-Admit: No Barriers/Issues: Patient states that he has Health Insurance but unable to provide this CM with whom the Insurance is. States that he filled out the papers and on wait. States has medication coverage with Insurance. Denies having a PCP- states just has been seeing providers for his arm, very short with responses and not elaborating. PCP list provided to patient. PCP: None Specialists: None Preferred [facility]acy: [facility] Insurance: TBD, States he has Insurance but does not know insurance information Rx Benefit:?Yes per patient LNOK: Dtr Verenice Harris LW/HPOA: None, Denies offered information Living Arrangements:?Lives with Girlfrienterrence Katz in a 2 story home, Bedroom on [address], 2 steps to enter home. ADL?s: Independent with ambulation and ADLs Transportation: Patient drives, drove self to hospital, Plans to DC with girlfriend. DME: None HHC: Past at [facility] SNF: None Goal: Home, does not think will have any needs. Denies any questions/concerns/issues. Aware CM remains available for any emerging needs. DC PLAN: Home, Primary CM updated regarding Insurance issue/PCP. Possible Home O2. [employer]
--- NOTE | 2018-10-17 18:07 | PN_ITS ---
Patient Problems: Active and Suspected Problems Hypoxia (Acute) Hyponatremia (Acute) Hypokalemia (Acute) Obesity (BMI 30.0-34.9) (Acute) Subjective: He is feeling better today, he was able to sleep overnight a little bit more. Still has some wheezing but says that his breathing seems to be a little bit easier Vitals/I&O's: Vital Signs Temp Pulse Resp BP Pulse Ox 98.0 F 88 18 111/67 95 10/17/18 16:00 10/17/18 16:00 10/17/18 16:00 10/17/18 16:00 10/17/18 16:00 Oxygen Flow Rate (L/min) 3 Oxygen Delivery Method Nasal Cannula Weight: 230 lb Body Mass Index (BMI) 33.0 Intake and Output for Last 24 Hours 10/15/18 10/16/18 10/17/18 23:59 23:59 23:59 Intake Total 240 / 240 180 / 180 Output Total 1950 / 1950 450 / 450 Balance -1710 / -1710 -270 / -270 General: Alert, Oriented x3, Cooperative, No apparent distress HEENT: Atraumatic, PERRLA, EOMI, Normocephalic Oral: Moist Mucosa Neck: Supple, No JVD Lungs: Diminished, Rhonchi, Wheezes, - - Poor air movement Cardiovascular: Regular rate, Regular Rhythm, Normal S1, Normal S2, No murmurs Abdomen: Soft, Non Tender, Non-Distended, No Hepato-splenomegaly Extremities: Edema - Trace to 1+ pitting bilaterally Skin: No rashes, No breakdown Neurological: Neuro grossly intact, Sensory exam intact to light touch and pain Psych/Mental Status: Normal Affect, Appropriate Laboratory Results 10/16/18 10:30: Urine Color Yellow, Urine Clarity Clear, Urine pH 7.0, Ur Specific [place] 1.005, Urine Protein 15 H, Urine Glucose (UA) Normal, Urine Ketones Negative, Urine Occult Blood 10 H, Urine Nitrite Negative, Urine Bilirubin Negative, Urine Urobilinogen Normal, Ur Leukocyte Esterase Negative, Urine RBC 0 SEEN, Urine WBC 0-5 SEEN, Ur Squamous Epith Cells 0 SEEN, Urine Bacteria 0 SEEN, Urine Mucus 0 SEEN 10/17/18 06:44: WBC 16.7 H, RBC 4.56 L, Hgb 13.3, Hct 38.4 L, MCV 84.2, MCH 29.2, MCHC 34.6, RDW 14.2, RDW Differential 43.6, Plt Count 456 H, MPV 9.3, Immature Gran % (Auto) 0.400, Neut % (Auto) 77.0 H, Lymph % (Auto) 19.3, Gray % (Auto) 3.0, Eos % (Auto) 0.2, Baso % (Auto) 0.1, Absolute Neuts (auto) 12.9 H, Absolute Lymphs (auto) 3.23, Total Counted Not Reportable 10/17/18 06:44: Sodium 131 L, Potassium 3.6, Chloride 89 L, Carbon Dioxide 36.0 H, Anion Gap 6, BUN 12, Creatinine 0.84, Estim Creat Clear Calc 92.94, Est GFR (MDRD) Af Amer 118, Est GFR (MDRD) Non-Af 98, BUN/Creatinine Ratio 14.3, Glucose 105, Calcium 9.3, Magnesium 1.9, Triglycerides 98, Cholesterol 175, LDL Cholesterol 110, VLDL Cholesterol 20, HDL Cholesterol 45 10/17/18 06:44: Hemoglobin A1c 5.8 Current Medications Albuterol/Ipratropium (Duoneb) 3 ml INHALATION Q4HWA.RT [facility] Last Admin: 10/17/18 15:15 Dose: 3 ml Documented by: Enoxaparin Sodium (Lovenox) 40 mg SC DAILY@1000 [facility] Last Admin: 10/17/18 08:02 Dose: 40 mg Documented by: Heparin Sodium (Beef Lung) () 50 units IV UD PRN PRN Reason: HEPARIN FLUSH Lisinopril (Zestril) 10 mg PO DAILY [facility] Last Admin: 10/17/18 08:02 Dose: 10 mg Documented by: Prednisone () 40 mg PO DAILY@0800 [facility] Last Admin: 10/17/18 08:02 Dose: 40 mg Documented by: Sodium Chloride () 10 - 40 ml IV UD PRN PRN Reason: PICC FLUSH Last Admin: 10/17/18 05:42 Dose: 10 ml Documented by: Medical Necessity - Tobacco Use Smoking Status: Former smoker Tobacco Use: Cigarettes Assessment/Plan All Active Problems Hypoxia (Acute) Hyponatremia (Acute) Hypokalemia (Acute) Obesity (BMI 30.0-34.9) (Acute) 1. Acute hypoxic respiratory failure unknown etiology -He is a [id number] smoking history and with his wheezing, lens to COPD -Continue with duo nebs and p.o. prednisone -We will also obtain an echo because his BNP was elevated to 136 and he has not had outpatient medical care -Continue with nasal cannula and wean as able 2. Malignant hypertension -Unsure if this is because of his respiratory issues or if he is chronically elevated -We will be able to assess cardiac function with his echo, his creatinine is normal and therefore we will start him on lisinopril -We will obtain urine studies for proteinuria 3. Hyponatremia/hypokalemia -His serum osmolality is low at 276, and his urine sodium is high at 86 mEq/L -This appears to be SIADH though from what is uncertain, also with his elevated BNP there is a concern for overload as well -At this time will just fluid restrict and will determine the need for Lasix based on his echo results 4. Obesity -Discussed with him lifestyle modifications -We will also obtain an A1c and a lipid profile since he has no outpatient medical care DVT: Lovenox Code Visit Inpatient E&M: 60860 Subs Hosp L2
[2018-10-18] VITALS (11 sets, daily range): BP systolic 92–111; BP diastolic 55–73; PULSE 88–97; RESP 18–20; TEMP 36.4–37; O2SAT 86–96
[2018-10-18 06:14] LABS: Absolute Lymphocyte Count 1.91 X10^3/uL (0.83-4.51); Absolute Neutrophil Count 11.6 X10^3/uL (2.0-7.7); Basophil# 0.04 X10^3/uL; Basophil% 0.3 % (0-1); Eosinophils% 1.3 % (0-5); Hematocrit 42.7 % (40-54); Hemoglobin 13.7 g/dL (13.0-16.5); Lymphocyte # 1.91 X10^3/ul (4.0); Lymphocyte % 12.1 % (19-41); Mean Corp Hgb Conc 32.1 g/dL (32-36); Mean Corpuscular Hgb 28.8 pg (27.0-32.0); Mean Corpuscular Volume 89.9 fL (80-94); Mean Platelet Vol. 9.6 fl (6.2-12.0); Monocyte# 1.97 X10^3/uL; Monocyte% 12.5 % (0-10); NRBC Flagged by Analyzer 0 % (0-5); Neutrophil # 11.59 X10^3/uL (2.7-7.7); Neutrophil % 73.2 % (47-70); POSITIVE DIFFERENTIAL YES; Platelet Count 511 K/mm3 (150-450); RBC Distribution Width CV 14.5 % (11.6-14.6); RBC Distribution Width SD 47.6 fl (35.1-43.9); Red Blood Count 4.75 M/mm3 (4.6-6.2); White Blood Count 15.8 K/mm3 (4.4-11.0)
[2018-10-18 06:26] LABS: Differential Indicated SCAN CRITERIA MET
[2018-10-18 06:36] LABS: Anion Gap 7 (5-15); BUN 21 mg/dL (7-18); BUN/Creat Ratio 17.1 RATIO (10-20); Calcium,Total 9.1 mg/dL (8.5-10.1); Chloride 91 mmol/L (98-107); Creatinine, Serum 1.23 mg/dL (0.70-1.30); EST Glomerular Filtration Rate 63 mL/min (>60); Est Glom Filt Rate - Afr Amer 76 mL/min (>60); Estimated Creatinine Clearance 63.47 ml/min; Glucose 103 mg/dL (74-106); Potassium 3.2 mmol/L (3.5-5.1); Sodium Level 140 mmol/L (136-145)
[2018-10-18 06:58] LABS: Differential Comment SCANNED
[2018-10-18] MEDS: Ipratropium/Albuterol Sulfate 3 ML AMPUL.NEB INHALATION ×2 (07:03→11:01)
[2018-10-18] MEDS: predniSONE 20 MG Tablet 40 MG PO (09:20)
[2018-10-18] MEDS: Enoxaparin 40 MG/0.4 ML Syringe SC (09:21)
--- NOTE | 2018-10-18 11:08 | PCM.DC ---
- Discharge Diagnoses Current Active Problems: Current Active and Chronic Problems Hypoxia (Acute) Hyponatremia (Acute) Hypokalemia (Acute) Obesity (BMI 30.0-34.9) (Acute) You will use the following diet at home:: Calorie/Carbohydrate Controlled (specify 1200, 1400, etc) - 1800 Your food should be the consistency of: Regular Your liquids should be the consistency of: Regular/Thin Discharge Activity: Return to Normal Activity, No Restrictions Call your doctor if you observe: Fever of 101 or Higher, Shortness of breath, Dizziness, Fainting spells, Swelling in the ankles, Chest pain, Increased palpitations (irregular heartbeat) Allergies/Adverse Reactions: Allergies No Known Allergies Allergy (Verified 10/16/18 07:18) Medications to take at Discharge Albuterol IH (ProAir) [Proair Hfa] 2 puff INHALATION Q4H PRN PRN #1 inhaler 10/18/18 Aspirin [Aspir 81] 81 mg PO DAILY #0 10/18/18 Lisinopril 5 mg PO DAILY #30 tab 10/18/18 predniSONE tablet 40 mg PO DAILY@0800 #14 tab 10/18/18 The following prescriptions were given: Lisinopril 5 mg PO DAILY #30 tab Transmission Status: Pending to [facility] predniSONE tablet 40 mg PO DAILY@0800 #14 tab Transmission Status: Pending to [facility] Albuterol IH (ProAir) [Proair Hfa] 2 puff INHALATION Q4H PRN PRN #1 inhaler PRN Reason: Wheezing Transmission Status: Pending to [facility] Primary Care Physician: NOT,DEFINED [NON-STAFF] - Please follow up with your Primary Care Physician in: 3-5 days Test Results: Test results from this visit will be discussed in further detail at your follow-up appointment, if applicable.
--- NOTE | 2018-10-18 11:13 | PCM.DC.SUM ---
Discharge Date and Diagnosis - Problem List Patient Problems: Active and Suspected Problems Hypoxia (Acute) Hyponatremia (Acute) Hypokalemia (Acute) Obesity (BMI 30.0-34.9) (Acute) Date of Admission: 10/16/18 Date of Discharge: 10/18/18 - Primary Discharge Diagnosis Active and Suspected Problems Hypoxia (Acute) Hyponatremia (Acute) Hypokalemia (Acute) Obesity (BMI 30.0-34.9) (Acute) Hospital Course and Treatment Imaging Results: CXR: IMPRESSION: Mild scarring at the right lung base. Multiple healed right-sided rib fractures. CTA Chest: IMPRESSION: No evidence of pulmonary embolism. Findings suggestive of scarring at the right lung base abutting the pleura. A 6 month follow-up CT scan is recommended. Consults: None Operations: None Procedures: 2-D Echocardiogram - Interpretation Summary The study was technically difficult. Left ventricular systolic function is normal. The estimated ejection fraction is 65 %. The left atrium is mildly enlarged. Trivial mitral valve insufficiency. Trivial tricuspid valve insufficiency. Unable to estimate RV systolic pressure/pulmonary artery pressure due to technically difficult study. Diastolic function is indeterminate. Summary of Care Provided: Per HPI: The patient is a 63 year old M presenting with shortness of breath. He states that this started last evening when he felt like he could not catch his breath. He was panting and did not sleep very well. He presented to the ER this morning because of the continued during the morning hours as well. He states that he always sleeps on his side and is unable to lay flat on his back. He has however a poor historian and cannot tell me whether or not it is due to back pain or an inability to take a deep breath when he lays down on his back. He denies any medical care and has never seen a primary care physician. He takes on his own on aspirin 81 mg twice daily for prophylaxis. Of note he has had a trauma in the past that necessitated multiple bone and muscle grafts to his right arm from his left flank and his left lower extremity. He is currently being seen by an infectious disease specialist for treatment of a wrist infection. He was started on IV antibiotics about 2 years ago and those were recently discontinued and he was given 6 days of azithromycin for what sounds like a possible URI. Of note in the ER his he was found to be hypoxic with a respiratory sat 86%. He is doing well on nasal cannula. He also felt better with albuterol. He was given a dose of IV steroids in the ER. He was also found to be hypokalemic and that was replaced, and also hyponatremic with an elevated BNP. His serum osmolality was barely low and his urine sodium was elevated to 86. He was also found to be severely hypertensive with blood pressures above 200, he denies any headaches or blurry vision. Hospital Course: 1. Acute hypoxic history failure likely secondary to [id number]-34-pbip-old male who has about a [id number] smoking history presenting with shortness of breath. He said this is the first time that he is ever heard himself wheeze ever. He had a CTA of the chest that ruled out a PE as well as chest x-ray. There was no pneumonia and there did not appear to be any fluid overload state on imaging. He did have trace to 1+ pitting edema on his lower extremities as well as a confusing history of possible orthopnea though he is not clear on that. He had an echo which demonstrated a normal EF but could not evaluate diastolic function and right ventricular systolic pressures were difficult to determine. Given his body habitus, I do think that there is a component of obstructive sleep apnea. This was discussed with him and he absolutely refuses to wear any mask at all ever and therefore will not undergo a sleep study. I discussed with him that he is still requiring oxygen, however he would like to go home today and therefore we performed an ambulatory pulse ox which he failed and he required 4 L to maintain sats at 91%. Will discharge on home O2 as well as an albuterol inhaler and 7 more days of p.o. prednisone. He does need to follow-up with a primary care physician which I have expressed to him repeatedly for outpatient management. 2. Malignant hypertension/hyponatremia-on admission his blood pressure was in the 200s and he was started on lisinopril. With the 10 mg dosage he had neutral blood pressures however he was low on the day of discharge and he was discharged on 5 mg instead of 10 mg lisinopril. His hyponatremia was difficult to establish a diagnosis, he has no medications for SIADH other than IV antibiotics which were not sure which ones he is on. He was placed on a fluid restriction and this improved his sodium from 124 05/05/1939 on the day of discharge. I discussed with him needing to continue with fluid restriction as an outpatient and that he needs to follow-up with a primary care physician to have repeat follow-up labs as an outpatient. Patient Problems: Active and Suspected Problems Hypoxia (Acute) Hyponatremia (Acute) Hypokalemia (Acute) Obesity (BMI 30.0-34.9) (Acute) Objective: General: Alert, Oriented x3, Cooperative, No apparent distress HEENT: Atraumatic, PERRLA, EOMI, Normocephalic Oral: Moist Mucosa Neck: Supple, No JVD Lungs: Diminished, Rhonchi, Wheezes, - - Poor air movement Cardiovascular: Regular rate, Regular Rhythm, Normal S1, Normal S2, No murmurs Abdomen: Soft, Non Tender, Non-Distended, No Hepato-splenomegaly Extremities: Edema - Trace to 1+ pitting bilaterally Skin: No rashes, No breakdown Neurological: Neuro grossly intact, Sensory exam intact to light touch and pain Psych/Mental Status: Normal Affect, Appropriate - Physical Exam Vital Signs Temp Pulse Resp BP Pulse Ox 98.0 F 89 20 H 101/61 94 10/18/18 10:25 10/18/18 10:25 10/18/18 11:01 10/18/18 10:25 10/18/18 10:25 Oxygen Flow Rate (L/min) [ 4 AMBULATION with Oxygen] Oxygen Flow Rate (L/min) 4 Oxygen Delivery Method Nasal Cannula Weight: 230 lb Body Mass Index (BMI) 33.0 Intake and Output for Last 24 Hours 10/16/18 10/17/18 10/18/18 23:59 23:59 23:59 Intake Total 240 / 240 420 / 420 Output Total 1950 / 1950 450 / 450 Balance -1710 / -1710 -30 / -30 Microbiology Past 72 Hours 10/16/18 07:35 Blood Culture - Preliminary Blood Culture (Wb) - Left Hand No growth in 48 hours. 10/16/18 07:35 Blood Culture - Preliminary Blood Culture (Wb) - Pic No growth in 48 hours. Laboratory Tests Past 24 Hrs 10/18/18 10/18/18 05:35 05:35 WBC 15.8 H RBC 4.75 Hgb 13.7 Hct 42.7 MCV 89.9 MCH 28.8 MCHC 32.1 RDW Std Deviation 47.6 H RDW Coeff of Ariane 14.5 Plt Count 511 H MPV 9.6 Immature Gran % (Auto) 0.600 Neut % (Auto) 73.2 H Lymph % (Auto) 12.1 L [place] % (Auto) 12.5 H Eos % (Auto) 1.3 Baso % (Auto) 0.3 Absolute Neuts (auto) 11.6 H Absolute Lymphs (auto) 1.91 Absolute Nucleated RBC 0.00 Nucleated RBC % 0 Differential Comment SCANNED Diff Path Review May foll Sodium 140 Potassium 3.2 L Chloride 91 L Carbon Dioxide 42.0 H Anion Gap 7 BUN 21 H Creatinine 1.23 Estim Creat Clear Calc 63.47 Est GFR (MDRD) Af Amer 76 Est GFR (MDRD) Non-Af 63 BUN/Creatinine Ratio 17.1 Glucose 103 Calcium 9.1 Discharge Activity: Return to Normal Activity, No Restrictions Call your doctor if you observe: Fever of 101 or Higher, Shortness of breath, Dizziness, Fainting spells, Swelling in the ankles, Chest pain, Increased palpitations (irregular heartbeat) Home Medications: Medications to take at Discharge Albuterol IH (ProAir) [Proair Hfa] 2 puff INHALATION Q4H PRN PRN #1 inhaler 10/18/18 Aspirin [Aspir 81] 81 mg PO DAILY #0 10/18/18 Lisinopril 5 mg PO DAILY #30 tab 10/18/18 predniSONE tablet 40 mg PO DAILY@0800 #14 tab 10/18/18 Following Prescrptions Were Given to Patient: Lisinopril 5 mg PO DAILY #30 tab Transmission Status: Pending to [facility] predniSONE tablet 40 mg PO DAILY@0800 #14 tab Transmission Status: Pending to [facility] Albuterol IH (ProAir) [Proair Hfa] 2 puff INHALATION Q4H PRN PRN #1 inhaler PRN Reason: Wheezing Transmission Status: Pending to [facility] Primary Care Physician: NOT,DEFINED [NON-STAFF] - Please follow up with your Primary Care Physician in: 3-5 days Disposition: Home Minutes spent on discharge:: 35 Patient Condition:: Good Medical Necessity - Tobacco Use Smoking Status: Former smoker Tobacco Use: Cigarettes Meaningful Use Info Meaningful Use Diagnoses (Choose all that apply): None applicable Code Visit Inpatient E&M: 74584 Disch Hosp
--- NOTE | 2018-10-18 11:40 | CASEMGMT ---
Addendum entered by Chika Lee 10/18/18 13:15: SW spoke with someone from patient's employer. He said patient doesn't work there anymore, he did for a short time. He said patient had Worker's Comp. Chika MCGUIRE Original Note: Patient needs O2 at d/c. He is listed as self pay so SW spoke with him about this. He said he has insurance. He does not have his insurance card. He said it is through his employer [employer]. SILAS asked if it was ok for SW to call his employer to find his insurance coverage. He said that is fine as long as he gets out of here today. SW told him we need to get his O2 lined up and we need the insurance information. SW called [employer] and left a message without leaving patient's name requesting a return call. Chika MCGUIRE
[2018-10-18 14:03] LABS: Pathologist Review Reviewed
--- NOTE | 2018-10-18 14:15 | CASEMGMT ---
JOSE CASTELLANO NOTE: To room to talk with pt. Introduced self and role of JOSE CASTELLANO. Pt made aware he will need oxygen @ discharge. He states he has no preference of DME company. Script for O2 obtained from Dr Ramirez and faxed to [facility]. Pt made aware insurance information is not attainable through [email or web address] and he states he may be agreeable to paying for oxygen [id number], depending on the cost. Call placed to [facility] and they were made aware no insurance information is available for pt and inquired about out of pocket cost for home O2. Pt completed Reduced Payment application and this was faxed back to [facility], along with pt's demographics sheet, O2 quick script, and Home O2 qualification testing documentation. [id number] cost for rental of concentrator and portability is $158.71 for 1st month and per Sonj and an automated form of payment would need to be placed on file with them for additional month charges. She states they can deliver the portable tank and then the van driver helper could get this information from the patient when they deliver the concentrator and rest of tanks to pt's home. Pt made aware of [id number] cost and that [facility] would need an automated form of payment from him once he gets home. Pt states he is agreeable to paying this amt and that he would be able to provide an automated form of payment. Rajwinder @ [facility] made aware and states they will deliver the portable tank to pt's room. Fatmata GARCIA, made aware awaiting portable O2. Gypsy STALEY RN, CM
--- NOTE | 2018-10-18 16:15 | CASEMGMT ---
RN CM NOTE: Spoke with Siri @ [facility]. Pt was current with them for SN for IV atb's prior to admission. Per pt's RNFatmata, Dr Ramirez has spoken with [facility] that was following pt for OP IV atb's and pt will no longer need IV atb's. Siri also made aware PICC is being d/c'd prior to pt being discharged and will no longer need [facility] for IV atb's. Gypsy OSBORNEN RN CM
--- NOTE | 2018-10-19 15:35 | CASEMGMT ---
Call received from [facility] stating that pt did not even call them until 2100 last pm after his e-tank had run out for them to deliver concentrator and then once they came out to deliver, pt declined home oxygen at that time as he did not want to pay for the oxygen. Call to this pt at this time and he states that [facility] is delivering the concentrator today but he is not happy that he needs to be on 3liters and doesn't trust that the 'dr that saw me for two days can know that I need oxygen and if I go on the oxygen, then I will never come off and it will make me have COPD.' This RN CM explained to pt why he needed home oxygen as his resting pulse ox was 86% and that it took 4 liters for him to come up to 91%. Pt then informed that just because he was on oxygen at this time does not make him reliant on it nor cause him to have COPD. Pt voices understanding but still disagrees with this RN CM at this time stating 'I know a lot of people and once they get those tanks, they never get rid of them.' Advised pt that many people are only on home oxygen for short periods of time, voices understanding. Pt states no further questions regarding d/c instructions or medications at this time. Pt does seem motivated to find a PCP and this RN CM advised him about the [facility] and [facility] assistance program as he states he does not have insurance at this time, voices understanding and states he plans to follow thru with one of these options. Pt voices no further questions/concerns/needs at this time. Call to [facility] and per Negin, pt did call and they are scheduled to go out and deliver tank today. SStaten RN CM
== END 2018-10-18 16:47 | disposition home or self-care (01) | DRG 189 ==
LOC: ED 07:52 → PCU 10:31
PROVIDERS: Admitting Provider Family Medicine; Emergency Provider Emergency Medicine; Visit Provider Family Medicine
DX: J96.01 Acute respiratory failure with hypoxia (principal); E87.1 Hypo-osmolality and hyponatremia; E66.9 Obesity, unspecified; E87.6 Hypokalemia; Z87.891 Personal history of nicotine dependence; Z68.33 Body mass index [BMI] 33.0-33.9, adult; I10 Essential (primary) hypertension
CPT/HCPCS: 36415; 36592; 71045; 71275; 80048; 80053; 80061; 81001; 83036; 83735; 83880; 83930; 83935; 84300; 84484; 85025; 87040; 93005; 93306; 94640; 97802; 99284; 99406; Q9957; Q9967; A4216